=== PATIENT | male | born 1955 | race Caucasian/White ===

== ENCOUNTER 2017-08-23 10:05 | Day surgery (SDC) | payer BC ==
[~2017-08-23 10:05] MED LIST: Lactated Ringers 1,000 ML IV SCH; Lidocaine 1%/Sod Bicarbonate in NS 8.4% 1 ML Syringe PRN; Sodium Chloride 0.9% 10 ML Syringe FLUSH PRN
[2017-08-23] MEDS ORDERED: Propofol 200 MG/20 ML SDV ONE ×2 (10:37→11:32)
--- NOTE | 2017-08-23 10:48 | PCM.PREANE ---
Preanesthetic Assessment - Anesthesia/Transfusion/Family Hx Anesthesia History: Prior Anesthesia Without Reaction Family History of Anesthesia Reaction: No - Review of Systems General: No Symptoms Pulmonary: No Symptoms Cardiovascular: No Symptoms, Other (Denies chest pain. ECHO done in March. Reviewed Results. Admission Nurse Coordinator told him there was nothing significant noted. ) Gastrointestinal: No Symptoms Neurological: No Symptoms Other: Reports: None - Physical Assessment NPO Status Date: 08/22/17 NPO Status Time: 21:00 Pulse: 54 O2 Sat by Pulse Oximetry: 99 Respiratory Rate: 17 Blood Pressure: 121/87 Temperature: 97.3 C Weight: 97 kg ASA Class: 2 Mental Status: Alert & Oriented x3 Airway Class: Mallampati = 1 Dentition: Reports: Normal Dentition Thyro-Mental Finger Breadths: 3 Mouth Opening Finger Breadths: 3 ROM/Head Extension: Full Lungs: Clear to Auscultation, Normal Respiratory Effort Cardiovascular: Regular Rate, Regular Rhythm - Allergies Allergies/Adverse Reactions: Allergies Allergy/AdvReac Type Severity Reaction Status Date / Time No Known Allergies Allergy Verified 08/22/17 13:21 - Acknowledgements Anesthesia Type Planned: MAC Pt an Appropriate Candidate for the Planned Anesthesia: Yes Alternatives and Risks of Anesthesia Discussed w Pt/Guardian: Yes Pt/Guardian Understands and Agrees with Anesthesia Plan: Yes PreAnesthesia Questionnaire Cardiovascular History: Reports: Other (See Below) Other Cardiovascular History: heart valve disorder - Past Surgical History GI Surgical History: Reports: Other (See Below) Other GI Surgeries/Procedures: proctoscopy Musculoskeletal Surgical History: Reports: Arthroscopic Knee - SUBSTANCE USE Smoking Status *Q: Never Smoker Recreational Drug Use History: No - HOME MEDS Home Medications: Home Meds Calcium Carbonate [Calcium] 1 tab PO DAILY 08/22/17 [History] Cholecalciferol (Vitamin D3) [Vitamin D] 1 tab PO DAILY 08/22/17 [History] Cyanocobalamin (Vitamin B12) [Vitamin B12] 1 tab PO DAILY 08/22/17 [History] Finasteride [Finasteride] 1.25 mg PO DAILY 08/22/17 [History] Folic Acid 1 mg PO DAILY 08/22/17 [History] Magnesium Oxide/Mag AA Chelate [Magnesium] 300 mg PO DAILY 08/22/17 [History] Multivitamin [Multivitamins] 1 cap PO DAILY 08/22/17 [History] [place]-3/DHA/Epa/Fish Oil [[place] 3 500 Softgel] 1 cap PO DAILY 08/22/17 [History] Prasterone (DHEA) [Dhea 25] 25 mg PO DAILY 08/22/17 [History] Red Yeast Rice 1 cap PO DAILY 08/22/17 [History] Thyroid,Pork [Nature-Throid] 97.5 mg PO DAILY 08/22/17 [History] Ubidecarenone [Co Q-10] 1 cap PO DAILY 08/22/17 [History] - CURRENT (IN HOUSE) MEDS Current Meds: Current Medications Lactated Ringer's (Ringers, Lactated) 1,000 mls @ 125 mls/hr IV ASDIRECTED GARRET Stop: 08/23/17 23:00 Lidocaine/Sodium Bicarbonate (Buffered Lidocaine 1% In Ns 8.4%) 0.25 ml .XX ONETIME PRN PRN Reason: Prior to IV Start Stop: 08/23/17 18:00 Sodium Chloride (Saline Flush) 10 ml FLUSH ASDIRECTED PRN PRN Reason: Keep Vein Open Stop: 08/23/17 18:00 Discontinued Medications Propofol (Diprivan 20 Ml) Confirm Administered Dose 200 mg .ROUTE .STK-MED ONE Stop: 08/23/17 10:38
[2017-08-23] MEDS ORDERED: Lidocaine 1% 2 ML ONE ×2 (11:37)
--- NOTE | 2017-08-23 11:38 | PCM.OPNOTE ---
- General Post-Op/Procedure Note Date of Surgery/Procedure: 08/23/17 Operative Procedure(s): colonoscopy Findings: Normal colonoscopy Pre Op Diagnosis: Rectal bleeding Post-Op Diagnosis: Normal colonoscopy Anesthesia Technique: MAC, Moderate Sedation Primary Surgeon: Terry Monk Pathology: None EBL in mLs: 0 Complications: None Condition: Good Free Text/Narrative:: After adequate IV sedation and analgesia was obtained with monitoring the patient was placed on his left side. Perianal inspection and digital rectal examination were normal. The prostate was grossly normal. A lubricated colonoscope was inserted into the rectum and advanced to the cecum without difficulty. The bowel preparation was excellent. The cecum ascending colon transverse and descending colons were endoscopically normal. No pathology was seen. The sigmoid and rectum were normal as well. Photographic Technician photographs were taken for the patient and for the medical record. Air was removed as I finished the procedure which he tolerated well.
--- NOTE | 2017-08-23 11:40 | PCM48HPAN ---
Post Anesthesia Note - EVALUATION WITHIN 48HRS OF ANESTHETIC Vital Signs in Normal Range: Yes Patient Participated in Evaluation: Yes Respiratory Function Stable: Yes Airway Patent: Yes Cardiovascular Function Stable: Yes Hydration Status Stable: Yes Pain Control Satisfactory: Yes Nausea and Vomiting Control Satisfactory: Yes Mental Status Recovered: Yes
== END 2017-08-23 12:09 | disposition home or self-care (01) ==
LOC: JD.SDS 10:05
PROVIDERS: ATTEND Surgery
DX: K62.5 Hemorrhage of anus and rectum (principal); Z79.899 Other long term (current) drug therapy
CPT/HCPCS: 45378; J7120; 00810; J2704